=== PATIENT | female | born 2000 | race Caucasian/White ===

== ENCOUNTER 2021-11-21 10:05 | Inpatient (IN) | payer OTHER, MEDICAID ==
[~2021-11-21] VITALS: Ht 152.4 cm; Wt 69.4 kg
[~2021-11-21 10:05] MED LIST: PRENATAL VITAM1 EAC8 PO
[2021-11-21 14:47] LABS: HEMOGLOBIN 11.6 gm/dl (12.3-15.3); RED BLOOD COUNT 3.64 M/UL (4.00-5.10); WHITE BLOOD COUNT 17.2 K/UL (4.5-11.0)
[2021-11-21] MEDS ORDERED: IBUPROFEN800 MG PO (18:17)
[2021-11-21] MEDS ORDERED: HEMOCYTE324 MG PO (18:17)
[2021-11-21] MEDS ORDERED: COLACE100 MG PO (18:17)
[2021-11-22 07:15] LABS: HEMOGLOBIN 10.7 gm/dl (12.3-15.3)
== END 2021-11-23 13:56 | disposition home or self-care (01) | DRG 807 ==
LOC: GENOP 10:05 → OB 14:14
PROVIDERS: ADMIT Obstetrics & Gynecology
PROC: 10907ZC Drainage of Amniotic Fluid, Therapeutic from Products of Conception, Via Natural or Artificial Opening (ICD-10-PCS; principal; 2021-11-21)
PROC: 10E0XZZ Delivery of Products of Conception, External Approach (ICD-10-PCS; 2021-11-21)
PROC: 10H07YZ Insertion of Other Device into Products of Conception, Via Natural or Artificial Opening (ICD-10-PCS; 2021-11-21)
PROC: 4A1H7CZ Monitoring of Products of Conception, Cardiac Rate, Via Natural or Artificial Opening (ICD-10-PCS; 2021-11-21)
PROC: 10H073Z Insertion of Monitoring Electrode into Products of Conception, Via Natural or Artificial Opening (ICD-10-PCS; 2021-11-21)
DX: O99.824 Streptococcus B carrier state complicating childbirth (principal); Z37.0 Single live birth; Z20.822 Contact with and (suspected) exposure to COVID-19; O86.20 Urinary tract infection following delivery, unspecified; Z3A.38 38 weeks gestation of pregnancy
CPT/HCPCS: 36415; 36600; 80307; 81001; 82800; 85014; 85018; 85025; J0595; J0696; J2590; J7030; J7120; U0002